=== PATIENT | female | born 1995 | race Two or more races ===

== ENCOUNTER → 2024-01-08 | Outpatient (CLI) | payer OTHER | LOC: M SLEEP HO 11:44 | PROVIDERS: ATTEND Nurse Practitioner Adult Health | DX: R51.9 Headache, unspecified (principal) ==

== ENCOUNTER → 2024-12-27 | Outpatient (CLI) | payer OTHER ==
[~2024-12-27] MED LIST: ADDE10CA3 PO; ADDE30CA3 PO; CHOL125C6 PO; EMGA120I; RIBO400T PO; SUMA100T2; THERTAB52 PO
== END ==
LOC: M PLARAD 10:12
PROVIDERS: ATTEND Nurse Practitioner Adult Health
DX: D43.4 Neoplasm of uncertain behavior of spinal cord (principal); M51.34 Other intervertebral disc degeneration, thoracic region